=== PATIENT | male | born 1960 | race Caucasian/White ===

== ENCOUNTER 2019-11-15 11:40 | Inpatient (IN) | payer MEDICAID, OTHER ==
[~2019-11-15] VITALS: Ht 152.4 cm; Wt 90.3 kg
[~2019-11-15 11:40] MED LIST: LEVO750T2 PO; Lisinopril PO; PANT40EC28 PO; SACC250C1 PO
--- NOTE | 2019-11-15 11:46 | NUR ---
WHEELCHAIR ASSISTED TO BED 5 AT THIS TIME.
[2019-11-15 11:48] VITALS: BP 160/113
--- NOTE | 2019-11-15 12:04 | NUR ---
59 Y/O M C/C DIZZINESS X1 DAY. PER PT HAD A DIZZINESS EPISODES LAST NIGHT AND FELL, DENIES LOC/HEAD TRAUMA. PT REFERRED BY PCP TO ER DUE TO SYMPTOMS. PT PRESENTS EUPNIC, BLOOD PRESSURE ELEVATED, A/OX4. NEURO ASSESSMENT EQUAL STRENGTH IN ALL EXTREMITIES. CRANIAL NERVES II,III,IV,V,,VII,XII INTACT. SPEECH CLEAR, NO FACIAL ASYMMETRY NOTED. PT NKA. HX HTN. NO RX. NO NVD. Addendum: 11/15/19 at 1217 by MEDOF PER PT ALLERGIES TO SEAFOOD
--- NOTE | 2019-11-15 12:04 | NUR ---
PER PT NO PREVIOUS HX OF ISCHEMIC/HEMORRAGHIC STROKE OR TIA.
--- NOTE | 2019-11-15 12:04 | NUR ---
SOCORRO INFORMED PT HAS SEAFOOD ALLERGY. PER DR. MACIAS, IT IS OK TO PROCEED WITH CONTRAST ADMINISTRATION. MELQUIADES CHO INFORMED.
--- NOTE | 2019-11-15 12:08 | NUR ---
PER DR MACIAS TO OBTAIN VERBAL CONSENT FOR CT ANGIO. PT AGREES, PER PT ALLERGIES TO SEA FOOD. CT SCAN PERSONNEL AND SOCORRO MACIAS AWARE OF ALLERGY. PER DR MACIAS TO PROCEED WITH CT ANGIO.
--- NOTE | 2019-11-15 12:08 | NUR ---
CODE BRAIN CALLED, PT TAKEN TO CT SCAN.
--- NOTE | 2019-11-15 12:10 | NUR ---
PRIMARY RN ON STANDBY WITH PATIENT AT CT SCAN AREA. MONITOR IN PLACE.
[2019-11-15 12:12] LABS: BASOPHILS % (AUTO) 0.4 % (0.0-2.0); EOSINOPHILS # (AUTO) 0.1 K/uL (0-0.4); EOSINOPHILS % (AUTO) 1.3 % (0.0-4.0); HEMATOCRIT 46.8 % (36-52); HEMOGLOBIN 16.1 g/dL (12.0-18.0); LYMPHOCYTES % (AUTO) 28.1 % (20.5-51.1); MEAN CORPUSCULAR HEMOGLOBIN 33 pg (27-31); MEAN CORPUSCULAR HGB CONC 34 g/dL (33-37); MEAN CORPUSCULAR VOLUME 94.6 fL (80-94); MONOCYTES # (AUTO) 0.5 K/uL (0.8-1.0); MONOCYTES % (AUTO) 6.3 % (1.7-9.3); NEUTROPHILS # (AUTO) 4.6 K/uL (1.8-7.7); NEUTROPHILS % (AUTO) 63.9 % (42.2-75.2); PLATELET COUNT (AUTO) 270 K/uL (140-450); RED BLOOD CELL COUNT(AUTO) 4.94 MIL/uL (4.20-6.10); RED CELL DISTRIBUTION WIDTH 14.3 % (11.6-13.7); WHITE BLOOD COUNT (AUTO) 7.1 K/uL (4.8-10.8)
--- NOTE | 2019-11-15 12:20 | NUR ---
PT CALM IN CT SCAN AREA, SCANNING IN PROGRESS. PRIMARY RN ON STANDBY.
--- NOTE | 2019-11-15 12:25 | NUR ---
CT ANGIO INITIATED. MONITORING PATIENT FOR POSSIBLE COMPLICATIONS.
[2019-11-15 12:27] LABS: ANION GAP 11.6 (8-16); CARBON DIOXIDE 27.9 mmol/L (21-32); CREATININE 1.3 mg/dL (0.6-1.3); POTASSIUM 3.5 mmol/L (3.5-5.1); TOTAL BILIRUBIN 0.6 mg/dL (0.0-1.0)
--- NOTE | 2019-11-15 12:35 | NUR ---
PT BACK IN ER. RESTING IN BED, SIDE RAIL X2
--- NOTE | 2019-11-15 14:25 | NUR ---
: REESE BRIANNA PHONE: [phone]
[2019-11-15] MEDS ORDERED: ASPIRIN 325 MG TAB PO ONE (14:50)
--- NOTE | 2019-11-15 14:57 | NUR ---
PT RESTING IN BED, SIDE RAIL X2
[2019-11-15] MEDS ORDERED: MORPHINE SULFATE 2 MG/ML SYR IVP PRN (15:50)
[2019-11-15] MEDS ORDERED: ACETAMINOPHEN 325 MG TAB PO PRN (15:50)
[2019-11-15] MEDS ORDERED: DOCUSATE SODIUM 250 MG GELCAP PO PRN (15:50)
[2019-11-15] MEDS ORDERED: ACETAMINOPHEN 650 MG SUPP RC PRN (15:50)
[2019-11-15] MEDS ORDERED: HYDROcodone/APAP 5/325 MG 1 TAB TAB PO PRN ×2 (15:50)
[2019-11-15] MEDS ORDERED: bisacodyL 10 MG SUPP RC PRN (15:50)
[2019-11-15] MEDS ORDERED: ALBUTEROL 0.083% 2.5 MG/3 ML NEBU INH PRN (15:50)
[2019-11-15] MEDS ORDERED: POTASSIUM CHLORIDE 10 MEQ TABER PO PRN (15:50)
[2019-11-15] MEDS ORDERED: ALUMINUM HYD/MAG/SIMETHICONE 30 ML UDC PO PRN (15:50)
[2019-11-15] MEDS ORDERED: diphenhydrAMINE 50 MG/ML VIAL IVP PRN (15:50)
[2019-11-15] MEDS ORDERED: MAG SULF 2000 MG/WATER PREMIX 50 ML IV PRN (15:50)
[2019-11-15] MEDS ORDERED: LORazepam 2 MG/ML VIAL IVP PRN (15:50)
[2019-11-15] MEDS ORDERED: IPRATROPIUM 0.02% 0.5 MG/2.5 ML NEBU INH PRN (15:50)
[2019-11-15] MEDS ORDERED: ONDANSETRON 4 MG/2 ML VIAL IVP PRN (15:50)
[2019-11-15] MEDS ORDERED: ZOLPIDEM 5 MG TAB PO PRN (15:50)
[2019-11-15] MEDS ORDERED: guaiFENesin DM 200/20 MG-10 ML 10 ML UDC PO PRN (15:50)
[2019-11-15] MEDS ORDERED: MAGNESIUM OXIDE 400 MG TAB PO PRN (15:50)
[2019-11-15] MEDS ORDERED: SODIUM PHOSPHATE 118 ML ENEM RC PRN (15:50)
[2019-11-15 16:17] VITALS: BP 154/106
--- NOTE | 2019-11-15 16:17 | NUR ---
RECEIVED THIS 59 YEAR OLD, MALE PER ERIN FROM ER, ADMITTED A CASE OF POSSIBLE STROKE. ALERT, AWAKE, ORIENTEDX4, WITH MILD SIDED WEAKNESS. SPEECH CLEAR AND PRIMARY LANGUAGE IS BOLIVIAN. BREATHING SPONTANEOUSLY AT ROOM AIR, BILATERAL CHEST CLEAR ON AUSCULTATION, BILATERAL PUPIL REACTIVE TO LIGHT SIZE 3MM, WARM TO TOUCH. SKIN IS INTACT. NOT IN DISTRESS. VITAL SIGN TAKEN AND RECORDED. SAFETY MEASURES IN PLACE, CONTINUE MONITOR.
--- NOTE | 2019-11-15 16:22 | NUR ---
Patient will be admitted to care of [facility]. Admited to TELEMETRY. Will go to room 125A. Belongings list completed. Report to ROSS ARNETT.
--- NOTE | 2019-11-15 17:21 | NUR ---
[facility] SCREENING SWAB DONE AND SENT TO LAB
--- NOTE | 2019-11-15 18:23 | NUR ---
CARDIAC DIET SERVED, ABLE FEED HIMSELF, CONSUMED 100% OF FOOD AND TOLERATED WELL.
--- NOTE | 2019-11-15 18:46 | NUR ---
APPARENTLY COMPLAINED OF TONGUE TINGLING, NEUROLOGIC ASSESSMENT DONE, SPEECH CLEAR, NO FACIAL DROOP, NO ARM DRIFT NOTED. VITAL SIGNS TAKEN BP-148/116 HR-76, SPO2-97 AT RA, NOT IN DISTRESS NOTED. RE-ASSURANCE GIVEN THAT HE IS STABLE. SAFETY MEASURES PROVIDED, CONTINUE MONITOR.
--- NOTE | 2019-11-15 19:12 | NUR ---
ENDORSED TO PUBLIC RELATIONS ACCOUNT SUPERVISOR IN STABLE CONDITION, BREATHING SPONTANEOUSLY AT ROOM AIR.
--- NOTE | 2019-11-15 19:42 | NUR ---
RECEIVED REPORT FROM AM SHIFT REGARDING THE PATIENT FOR CONTINUITY OF CARE. RECEIVED PT A/A/OX3, AZERI SPEAKING ONLY. MANAGER STAR PROVIDED. NO SIGN AND SYMPTOMS OF DISTRESS NOTED AT THIS TIME. PT DENIES ANY CHEST PAIN, DIZZINESS AND SOB.PT IS SR ON ARTS ADMINISTRATOR, HR- 76. FALL PRECAUTION IMPLEMENTED. INSTRUCTED NOT TO GET OUT OF BED WITHOUT ASSISTANCE. URINAL AT THE BEDSIDE. PT VERBALIZED UNDERSTANDING WITH THE POC. CALL LIGHT WITHIN REACH. WILL CONTINUE MONITORING AND POC.
[2019-11-15 20:00] VITALS: BP 144/90
--- NOTE | 2019-11-15 20:26 | NUR ---
PT SEEN AND ASSESSED. PT ON ROOM AIR WITH SPO2 OF 98%. CLEAR BREATH SOUNDS ON AUSCULTATION. PT IN NO APPARENT RESPIRATORY DISTRESS AT THIS TIME.PRN TX NOT INDICATED AT THIS TIME. WILL CONTINUE TO MONITOR PT.
--- NOTE | 2019-11-15 21:00 | NUR ---
PT ADMITTED FOR ACUTE STROKE. PT IS MOZAMBICAN SPEAKING WITH MINIMAL UKRAINIAN. PT IS A/A/OX4, SPEECH IS CLEAR. NO FACIAL DROOP NOTED. PT DENIES ANY HEADACHE OR PAIN AT THIS TIME.PT VERBALIZED THAT HE HAS NUMBNESS AND TINGLING ON HIS TONGUE, LEFT UPPER EXTREMITY AND LEFT LOWER EXTREMITY. PT MOTOR FUNCTION ON THE LEFT ARM AND LEFT LEG ARE WEAK .HAS SOME EFFORT AGAINST GRAVITY, LIMB CANNOT MAINTAIN 90 DEGREES, DRIFTS DOWN TO BED, BUT HAS SOME EFFORT AGAINST GRAVITY. OTHERWISE NO OTHER DISABILITY NOTED.
[2019-11-15] MEDS: ATORVASTATIN 20 MG TAB PO SCH (21:22)
--- NOTE | 2019-11-15 22:00 | NUR ---
ADMINISTERED SCHEDULED MEDS ORDERED. PT TOLERATED IT WELL. NO COMPLAIN OF PAIN AT THIS TIME. SAFETY MEASURES IN PLACED.
--- NOTE | 2019-11-15 23:00 | NUR ---
PHARMACY CALLED AND WANTED TO CLARIFY THE ORDER FOR THE PROTONIX. PER PHARMACY ORDER NEEDS TO BE CHANGE TO EITHER 20 MG OR 40 ONLY AND MEDS CANNOT BE CUT IN HALF WITH [address] BLANC'S EXCHANGE AND DR COREAS IS CONTINUOUS IMPROVEMENT BLACK BELT AND CALLED BACK AND AWARE. NEW ORDER GIVEN BY DR COREAS TO CHANGE PROTONIX TO 40 MG PO EC DAILY. ORDER CARRIED OUT.
[2019-11-16] VITALS: BP 147/91
--- NOTE | 2019-11-16 | NUR ---
PT VITAL SIGNS STABLE, AFEBRILE, SATING 96% ON RA. NO COMPLAIN OF PAIN AT THIS TIME. NOT IN ANY DISTRESS. CALL LIGHT WITHIN REACH.
--- NOTE | 2019-11-16 02:36 | NUR ---
PATIENT ASLEEP AT THIS TIME. VISIBLE CHEST RISE AND FALL NOTED. NO SIGN AND SYMPTOMS OF DISTRESS NOTED. CALLL LIGHT WITHIN REACH.
--- NOTE | 2019-11-16 02:37 | NUR ---
PATIENT ASLEEP AT THIS TIME. VISIBLE CHEST RISE AND FALL NOTED. NO SIGN AND SYMPTOMS OF DISTRESS NOTED. CALLL LIGHT WITHIN REACH.
[2019-11-16] MEDS: CLONIDINE HYDROCHLORIDE 0.1 MG TAB PO PRN (03:49)
[2019-11-16 04:00] VITALS: BP 169/92
--- NOTE | 2019-11-16 04:00 | NUR ---
PT BP IS 169/92 , GAVE PRN CLONIDINE ORDERED. HR-67, AFEBRILE, SATING 97% ON RA. NO COMPLAIN OF PAIN AT THIS TIME. NO SIGN AND SYMPTOMS OF DISTRESS NOTED. SR ON TELE MONITOR, HR-68.CALL LIGHT WITHIN REACH.
--- NOTE | 2019-11-16 05:30 | NUR ---
RE ASSESSED PT BLOOD PRESSURE AFTER GIVING THE CLONIDINE. BP-154/88, HR-63, SATING 96% ON RA.
--- NOTE | 2019-11-16 06:25 | NUR ---
PT STABLE. NO ACUTE EVENTS THROUGHOUT THE NIGHT. NO SIGN AND SYMPTOMS OF DISTRESS NOTED. NO COMPLAIN AT THIS TIME. ALL NEEDS ATTENDED. CALL LIGHT WITHIN REACH. WILL ENDORSE THE PT TO THE ONCOMING RN FOR CONTINUITY OF CARE.
[2019-11-16 06:55] LABS: CHOL/HDL RATIO 7.3 (1-4.5)
--- NOTE | 2019-11-16 07:28 | NUR ---
ENDORSED THE PT TO DAY RN FOR CONTINUITY OF CARE. PT STABLE. ALL NEEDS MET. SIGNING OFF.
--- NOTE | 2019-11-16 07:36 | NUR ---
SHIFT REPORT RECEIVED FROM ESL PROFESSOR NURSE. PT IS SLEEPING IN BED AT THIS TIME BUT RESPONSIVE. NO DISTRESS NOTED. IV IN PLACE. BED IN LOW POSITION. CALL LIGHT IN REACH. WILL CONTINUE TO MONITOR.
[2019-11-16 08:00] VITALS: BP 144/86
[2019-11-16] MEDS: ASPIRIN 325 MG TAB PO SCH (08:42)
[2019-11-16] MEDS: PANTOPRAZOLE 40 MG TABEC PO SCH (08:42)
[2019-11-16] MEDS: lisinopriL 20 MG TAB PO SCH (08:42)
[2019-11-16] MEDS: ENOXAPARIN 40 MG/0.4 ML SYR SUBQ SCH (08:43)
[2019-11-16] MEDS ORDERED: PANTOPRAZOLE 40 MG TABEC PO SCH (09:00)
--- NOTE | 2019-11-16 09:01 | NUR ---
PATIENT HAS BEEN SCREENED AND CATEGORIZED MODERATE NUTRITION RISK. PATIENT WILL BE SEEN WITHIN 3-5 DAYS OF ADMISSION. 11/18/19 11/20/[address]
--- NOTE | 2019-11-16 09:30 | NUR ---
PT IS RESTING IN BED. PT IS RESPONSIVE TO NAME. PT IS ABLE TO MOVE ARMS AND LEGS. PERRLA NOTED. SPEECH NORMAL. MORNING MEDS GIVEN. IV IN PLACE AND FLUSHING. NO DISTRESS NOTED AT THIS TIME. BED IN LOW POSITION. CALL LIGHT IN REACH
--- NOTE | 2019-11-16 09:45 | NUR ---
PER PT THERAPIST PT IS DRAGGING LEFT LEG WHEN WALKING.
--- NOTE | 2019-11-16 10:21 | NUR ---
RECEIVED ORDER FOR MRI OF THE BRAIN. FAXED CLINICALS TO [facility] [phone] FAX [phone]. FAXED CLINICALS TO [facility]. Addendum: 11/16/19 at 1120 by Stephany Nails CM LATE ENTRY FOR THIS MORNING: RECEIVED AN ORDER FOR MRI OF BRAIN WITHOUT CONTRAST, PRIMARY RN JAVIER MADE AWARE TO FILL OUT MRI QUESTIONNAIRE AND PATIENT HAS NOT BEEN TESTED FOR COVID. CHARGE NURSE MADE AWARE WELL. 1110: CONTACTED ADONIS ARNETT AT [facility] [phone], NO ANSWER. LEFT MESSAGE. ROSS HYDRO PNEUMATIC TESTER MADE AWARE. SHE WILL FOLLOW UP WITH ADONIS. Addendum: 11/16/19 at 1354 by Stephany Nails CM 1130: SAM CHOI OF [facility] TO SEND REFERRAL TO [facility] AND [facility]. REFERRAL SENT. PER ABISAI OF [facility]SF[facility], THEY CANNOT TAKE PATIENT WITH COVID PENDING RESULTS. SHE STATED THAT IT WILL TAKE THEM HALF A DAY TO CLEAN MRI MACHINE FOR COVID POSITIVE PATIENTS AND WILL HOLD HOLD WHATEVER SCHEDULE THEY HAVE. THAT IS WHY THEY ARE REQUESTING THAT THE PATIENT SHOULD HAVE THE RESULTS FIRST BEFORE THEY SCHEDULE. 1258: CONTACTED ADONIS RN OF [facility] TO FOLLOW UP. SHE STATED THAT THEIR HAND II TUBE BENDER WILL BE ON SITE AFTER 1600 AND CAN TAKE PATIENT WITH COVID PENDING. JIMBO OF [facility] MADE AWARE. SHE STATED THAT SHE WILL CALL ME BACK. 1310: CONTACTED PRIMARY RN JAVIER [id number], TO FOLLOW UP WITH THE MRI QUESTIONNAIRE. PER JAVIER RN FORM IS IN THE CHART. COPY OF THE QUESTIONNAIRE SENT TO [facility]. 1324: RECEIVED A CALL FROM JIMBO OF [facility], INFORMED HER REGARDING [facility] AND [facility]. SHE STATED TO GO AHEAD AND SEND THE PATIENT TO [facility] AND SHE WILL CALL [facility] TO PROVIDE THE AUTH. PROVIDED HER WITH [facility] DEPT NUMBER AND WILL CALL ME BACK FOR THE TRANSPORT AUTH. WILL FOLLOW UP. MADE A PHONE CALL TO ADONIS OF [facility]PT, CONFIRMING THAT THEY RECEIVED THE MRI QUESTIONNAIRE AND WE CAN SET UP TRANSPORT AT 1600, SO PATIENT WILL BE THERE AT 1630 AND SHE WILL INFORM THE TECH. INFORMED HER THAT [facility] WILL BE CONTACTING THEM FOR THE AUTH. RECEIVED THE TRANSPORT AUTH [id number] AND MRI AUTH [id number]. Addendum: 11/16/19 at 1404 by Mildred Fragoso CM SPOKE TO MARCOS AT [facility] [phone] TO SET UP TRANSPORTATION FOR PATIENT. THIS PATIENT WILL BE TRANSPORTED AT 4:00 PM TO [facility] FOR MRI PROCEDURE AND WILL BE RETURNING TO [place] AFTER MRI. NOTIFIED MELQUIADES HERRERA AND ADONIS AT [facility] IN RADIOLOGY. Addendum: 11/16/19 at 1510 by Mildred Fragoso CM MELQUIADES HERRERA SPOKE TO PATIENTS REESE NEGRETE [phone] TO NOTIFY HER OF HUSBANDS PROCEDURE AT [facility] Addendum: 11/16/19 at 1605 by Stephany Nails DISCHARGE PLANNING: THIS IS A 59 Y/O MALE PATIENT FROM HOME, WHO CAME IN DUE TO LEFT SIDED WEAKNESS AND NUMBNESS. PAST MEDICAL HISTORY INCLUDE HTN, GERD AND ASTHMA. INITIAL DIAGNOSIS OF HYPOXIA, PNEUMONIA. CURRENT LABS INCLUDE WBC 7.1, H/H 16.1/46.8, NA/K 140/3.5, BUN/CREA 7/1.3. COVID PENDING. DC PLAN PENDING ON THE PATIENT'S RESPONSE TO TREATMENT. Addendum: 11/17/19 at 1151 by Anila Brooks CM DC PLANNING: PHYSICAL THERAPY RECOMMENDED SNF FOR MORE REHAB. NOTIFIED JULIANA ,FAXED TO [facility] AND PER [facility] CAN TAKE HIM WITH PENDING COVID TEST. CM TO FOLLOW . Addendum: 11/17/19 at 1202 by Mildred Fragoso CM FAXED PT'S CLINICALS TO [facility] [phone] WILL FOLLOW UP Addendum: 11/17/19 at 1340 by Mildred Fragoso CM FOLLOWED UP WITH CHRIS [phone] AT [facility] SHE CAN ACCEPT THIS PATIENT. SHE STATED TO LET HER KNOW WHEN PATIENT IS READY FOR DISCHARGE. Addendum: 11/17/19 at 1441 by Mildred Fragoso CM FOLLOWED UP WITH CHRIS AT [facility] [phone] PATIENT HAS BEEN ACCEPTED TO ROOM [address] LEON[address]O. SAMIA FROM [facility] PROVIDED TRANSPORTATION AUTH [id number]. WILL SET UP TRANSPORTATION Addendum: 11/17/19 at 1457 by Mildred Mayeda CM SPOKE TO CHRIS ABOUT PENDING COVID TEST THEY CAN NOT TAKE PATIENT UNTIL WE HAVE THE RESULTS FOR COVID TEST. I SPOKE TO THE PATIENTS REESE REED [phone] USING MOBILE UI/UX DESIGNER [phone] TO DISCUSS HER GOING TO A [facility] SHE WAS AGREEABLE. Addendum: 11/17/19 at 1503 by Mildred Fragoso CM IF PATIENTS COVID RESULTS COME BACK THIS WEEKEND WE COULD USE [facility] [phone] WITH AUTH #[id number]. Addendum: 11/17/19 at 1507 by Mildred Yanetheda CM IF [facility] DOES NOT HAVE AVAILABLE TRANSPORTATION WE COULD ALSO USE [facility] [phone]
--- NOTE | 2019-11-16 10:53 | NUR ---
CLOTHING MANAGER NOTE: SW CONTACTED PATIENT'S REESE REED [phone] TO COMPLETE ASSESSMENT. SW WILL FOLLOW UP.
--- NOTE | 2019-11-16 10:55 | NUR ---
COVID SWAB DONE REQUESTED BY SS FOR AN MRI AT [facility].
[2019-11-16 12:00] VITALS: BP 147/83
--- NOTE | 2019-11-16 12:00 | NUR ---
PT IS AWAKE AND RESPONSIVE. PT SIGNED MRI QUESTIONNAIRE. NO DISTRESS NOTED. PT WAS ABLE TO STAND WITH ASSISTANCE. BED IN LOW POSITION. CALL LIGHT IN REACH.
--- NOTE | 2019-11-16 15:04 | NUR ---
PT IS AWAKE AND RESPONDING. PT WILL BE GOING TO [place] FOR AN MRI AT 1600. NO DISTRESS NOTED. WILL CONTINUE TO MONITOR. CALL LIGHT IN REACH.
[2019-11-16 16:00] VITALS: BP 136/87
--- NOTE | 2019-11-16 16:30 | NUR ---
PT IS OFF UNIT GOING TO [place] FOR AN MRI.
--- NOTE | 2019-11-16 17:56 | NUR ---
PT IS BACK ON UNIT. WILL CONTINUE TO MONITOR.
--- NOTE | 2019-11-16 18:45 | NUR ---
MRI RESULTS READ BACK TO DR LEDESMA.
--- NOTE | 2019-11-16 19:24 | NUR ---
SHIFT REPORT GIVEN TO DATA PROCESSING SUPERVISOR NURSE. PT IS STABLE.
--- NOTE | 2019-11-16 19:24 | NUR ---
RECEIVED BEDSIDE REPORT FROM MELQUIADES HERRERA. AOX4, ON ROOM AIR, RESPIRATION EVEN AND UNLABORED, NO SOB. RIGHT HAND 20 G, INTACT. LOW BED IN PLACE, DROPLET PRECAUTION OBSERVED, DENIES PAIN, PLAN OF CARE DISCUSSED, CALL LIGHT WITHIN REACH. WILL CONTINUE TO MONITOR.
[2019-11-16 20:00] VITALS: BP 145/94
[2019-11-16] MEDS: ATORVASTATIN 20 MG TAB PO SCH (20:27)
--- NOTE | 2019-11-16 20:27 | NUR ---
PATIENT IS AWAKE, DUE MEDS GIVEN ORDERED, TOLERATED WELL, MED EDUCATION PROVIDED. CALL LIGHT WITHIN REACH, LOW BED IN PLACE.
[2019-11-17] VITALS: BP 148/101
--- NOTE | 2019-11-17 | NUR ---
V/S TAKEN, PATIENT DENIES ANY PAIN, NO DISTRESS NOTED. ALL NEEDS ATTENDED, CALL LIGHT WITHIN REACH.
[2019-11-17 04:00] VITALS: BP 147/85
--- NOTE | 2019-11-17 04:30 | NUR ---
MADE ROUNDS, PATIENT SLEEPING. RESPIRATION EVEN AND UNLABORED.
--- NOTE | 2019-11-17 07:00 | NUR ---
PATIENT IS NOT IN ANY ACUTE DISTRESS, DENIES PAIN, NO SOB, IN STABLE CONDITION. WILL ENDORSE TO AM SHIFT RN FOR CONTINUITY OF CARE.
--- NOTE | 2019-11-17 07:12 | NUR ---
RECEIVED REPORT FROM CONTINUITY TESTER RN FOR CONTINUITY OF CARE. PT IS AAOX4, COOPERATIVE AND ABLE TO MAKE NEEDS KNOWN. PT IS PASHTO SPEAKING. PT ON RA SATING WELL @ 95%. PT SKIN IS INTACT. PT STATES HE JOHNNY LEFT SIDED WEAKNESS. ON ASSESSMENT, LEFT ARM DRIFTS WHEN PT HOLD IT UP. PHYSICAL THERAPY TO SEE PT LATER THIS MORNING. IV ON THE RIGHT HAND 20G SL. DISCUSSED POC WITH PT AND PT VERBALIZED UNDERSTANDING. ALL SAFETY MEASURES IN PLACE. PT ORIENTED TO CALL LIGHT AND ITS USE. WILL ROUND FREQUENTLY ON PT THROUGHOUT THE SHIFT.
[2019-11-17 08:00] VITALS: BP 143/91
[2019-11-17] MEDS: ENOXAPARIN 40 MG/0.4 ML SYR SUBQ SCH (08:33)
[2019-11-17] MEDS: PANTOPRAZOLE 40 MG TABEC PO SCH (08:34)
[2019-11-17] MEDS: lisinopriL 20 MG TAB PO SCH (08:34)
[2019-11-17] MEDS: ASPIRIN 325 MG TAB PO SCH (08:34)
--- NOTE | 2019-11-17 08:41 | NUR ---
ADMINISTERED MORNING MEDS TO PT. PT TOLERATED WELL. ALL NEEDS MET. WILL CONTINUE TO ROUND FREQUENTLY ON PT.
--- NOTE | 2019-11-17 10:34 | NUR ---
LACQUER COATER NOTE: Patient's Orientation Unable To Assess Information Provided By REESE REED - Comments SW WAS UNABLE TO MEET PATIENT AT BEDSIDE DUE TO MEDICAL CONDITION. Cook Fishing Vessel, Realtionship and Phone Number REESE REED [phone] Healthcare Power of Housekeeper No Does Patient Have a POLST No Identifying Problems No Social Work Triggers Is A Social Work Consult Needed No Mandate Report Filed No Explanation Of Identifying Problems PATIENT IS A 59-YEAR-OLD MALE ADMITTED FOR ACUTE CEREBROVASCULAR ACCIDE. PATIENT HAS PMHX OF HYPERTENSION, GERD, AND ASTHMA. Admitted From Home Pre-Admission Level Of Functioning Status Independent/Ambulatory Prior Resources/Services Used In Last 12 Months No Prior Resources Used Prior DME No Prior DME Used Living Situation Lives With Family House Patient Had Caregiver No Home Support No Caregiver Issues Financial Issues No Known Financial Issue Referral To The Financial Counselor Needed No Factors/Needs No D/C Needs Identified Pt/Rep Participated In Discharge Plan Yes Patient/Family Agress With Discharge Plan Yes Discharge Plan Comments TENTATIVE DISCHARGE PLAN IS FOR PATIENT TO RETURN HOME. DC Plan Status Initiated
--- NOTE | 2019-11-17 11:24 | NUR ---
PT RESTING IN BED. ALL NEEDS MET.
[2019-11-17 12:00] VITALS: BP 131/79
--- NOTE | 2019-11-17 13:15 | NUR ---
PT EATING LUNCH. ALL NEEDS MET.
--- NOTE | 2019-11-17 15:27 | NUR ---
PT WATCHING TV FROM BED. ALL NEEDS MET. WILL CONTINUE TO ROUND FREQUENTLY ON PT.
[2019-11-17 16:00] VITALS: BP 154/87
[2019-11-17] MEDS: CLONIDINE HYDROCHLORIDE 0.1 MG TAB PO PRN (17:48)
--- NOTE | 2019-11-17 17:50 | NUR ---
PT REPORTED BP BY TRAFFIC CONTROL SIGNALER WAS 162/112. REASSESSED BP AND RESULT WAS 171/113, HR-85. CLONIDINE 0.1MG PO PRN GIVEN. PT DENIES ANY DIZZINESS, MARTINS, BLURRED VISION OR ANY OTHER SYMPTOMS AT THIS TIME. PAGED TO NOTIFY OF FINDINGS.
--- NOTE | 2019-11-17 18:15 | NUR ---
RECEIVED CALL BACK FROM , ORDERS RECEIVED TO D/C CLONIDINE ORDER AND TO GIVE HYDRALAZINE 10MG IV Q4H PRN FOR SBP>160 AND/OR DBP>110. NOTIFIED MD THAT CLONIDINE WAS GIVEN AND HE SAID IT IS OK. REASSESS PT IN 1HR AND 1/2 AND THEN GIVE HYDRALAZINE IF NEEDED. PT STABLE AT THIS TIME.
--- NOTE | 2019-11-17 19:26 | NUR ---
GAVE REPORT TO SPINNER OPEN END RN FOR CONTINUITY OF CARE. PT IN STABLE CONDITION AT THIS TIME.
--- NOTE | 2019-11-17 19:26 | NUR ---
RECEIVED PATIENT IN STABLE CONDITION FROM AM SHIFT NURSE FOR CONTINUITY OF CARE. TELE PATIENT. RESPIRATIONS EVEN, UNLABORED. SKIN WARM, DRY. IV SITE TO RIGHT HAND 20G PATENT/INTACT. NO C/O PAIN. NO S/S ACUTE DISTRESS. PROVIDED EDUCATION REGARDING TAKING REST PERIODS AND RELAXATION TECHNIQUES TO MANAGE HIGH BLOOD PRESSURE. PATIENT VERBALIZED UNDERSTANDING BUT NEEDS REINFORCEMENT. PLAN OF CARE DISCUSSED WITH PATIENT. CALL LIGHT WITHIN REACH. ISOLATION PRECAUTIONS OBSERVED BY ALL STAFF.
[2019-11-17] MEDS: hydrALAZINE 20 MG/ML VIAL IVP PRN (19:47)
--- NOTE | 2019-11-17 19:47 | NUR ---
GAVE PRN HYDRALAZINE FOR BP 163/101. PATIENT IS SITTING IN BED AND VERBALIZED NO DISTRESS AT THIS TIME.
[2019-11-17 20:00] VITALS: BP 163/101
[2019-11-17] MEDS: ATORVASTATIN 20 MG TAB PO SCH (20:06)
--- NOTE | 2019-11-17 20:47 | NUR ---
RECHECKED PATIENT'S BLOOD PRESSURE AT 156/106. PATIENT IS IN NO DISTRESS.
--- NOTE | 2019-11-17 21:45 | NUR ---
SPOKE WITH DAUGHTER ON THE PHONE REGARDING PLAN OF CARE FOR PATIENT.
--- NOTE | 2019-11-17 23:22 | NUR ---
PATIENT RESTING COMFORTABLY IN BED. NO C/O PAIN. NO S/S ACUTE DISTRESS. CALL LIGHT WITHIN REACH. SAFETY PRECAUTIONS IN PLACE. ISOLATION PRECAUTIONS OBSERVED BY ALL STAFF.
[2019-11-18] VITALS: BP 166/103
[2019-11-18] MEDS: hydrALAZINE 20 MG/ML VIAL IVP PRN (01:00)
--- NOTE | 2019-11-18 01:00 | NUR ---
PATIENT HAD AN ELEVATED BP 166/103. MEDICATED WITH HYDRALAZINE PRN ORDERED. PATIENT RESTING COMFORTABLY IN ROOM. NO C/O PAIN. NO S/S ACUTE DISTRESS. CALL LIGHT WITHIN REACH. ISOLATION PRECAUTIONS OBSERVED BY ALL STAFF.
--- NOTE | 2019-11-18 03:45 | NUR ---
MADE ROUNDS. PATIENT CONTINUES IN STABLE CONDITION. NO C/O PAIN. NO S/S ACUTE DISTRESS. CALL LIGHT WITHIN REACH. SAFETY PRECAUTIONS IN PLACE. ISOLATION PRECAUTIONS OBSERVED BY ALL STAFF.
[2019-11-18 04:00] VITALS: BP 110/86
--- NOTE | 2019-11-18 05:06 | NUR ---
PATIENT IS AWAKE AND IN STABLE CONDITION. NO C/O PAIN. NO S/S ACUTE DISTRESS. CALL LIGHT WITHIN REACH. ISOLATION PRECAUTIONS OBSERVED BY ALL STAFF.
--- NOTE | 2019-11-18 07:20 | NUR ---
ENDORSED PATIENT IN STABLE CONDITION TO AM SHIFT NURSE FOR CONTINUITY OF CARE.
[2019-11-18 08:00] VITALS: BP 143/94
[2019-11-18] MEDS: ASPIRIN 325 MG TAB PO SCH (09:14)
[2019-11-18] MEDS: PANTOPRAZOLE 40 MG TABEC PO SCH (09:14)
[2019-11-18] MEDS: lisinopriL 20 MG TAB PO SCH (09:17)
[2019-11-18] MEDS: ENOXAPARIN 40 MG/0.4 ML SYR SUBQ SCH (09:18)
[2019-11-18] MEDS ORDERED: ASPI-1205 PO (11:35)
[2019-11-18] MEDS ORDERED: ATOR20TA40 PO (11:35)
[2019-11-18 12:00] VITALS: BP 152/90
--- NOTE | 2019-11-18 13:11 | NUR ---
Telephone report given to Marzena ARNETT from [facility].
--- NOTE | 2019-11-18 13:32 | NUR ---
Called [facility] for wheelchair transport to [facility]. ETA for pickup = 1430. Spoke to Kandace and notified of pick-up time. Verbalized understanding.
--- NOTE | 2019-11-18 15:30 | NUR ---
Called [facility] to f/u on ETA. Updated ETA to 10-15min from now. Patient notified and verbalized understanding.
--- NOTE | 2019-11-18 16:05 | NUR ---
Patient discharged at this time via gurney by [facility]. Patient is alert, verbally responsive, no signs of distress upon departure. All belongings with patient.
== END 2019-11-18 16:10 | DRG 45 ==
LOC: MED 11:40 → MTU 14:02 → MMU 16:45 → MTU 11-16 11:16
PROVIDERS: ADMIT Internal Medicine Pulmonary Disease; ATTEND Internal Medicine Pulmonary Disease
DX: I63.511 Cerebral infarction due to unspecified occlusion or stenosis of right middle cerebral artery (principal); I10 Essential (primary) hypertension; E66.9 Obesity, unspecified; J45.909 Unspecified asthma, uncomplicated; K21.9 Gastro-esophageal reflux disease without esophagitis; Z68.38 Body mass index [BMI] 38.0-38.9, adult; Z91.013 Allergy to seafood; Z20.828 Contact with and (suspected) exposure to other viral communicable diseases
CPT/HCPCS: 36415; 70450; 71045; 80053; 83036; 84484; 85025; 87081; 93005; 97110; 97112; 97116; 97161-GP; 97530; 99285; J0360; J1650; J2270; J2405; Q0092; Q9967; U0003-CS